=== PATIENT | female | born 1965 | race Caucasian/White ===

== ENCOUNTER 2019-07-15 07:40 | Day surgery (SDC) | payer OTHER, MEDICAID ==
[2019-07-15] MEDS: ACETAMINOPHEN 500 MG TAB PO (08:36)
[2019-07-15] MEDS: LIDOCAINE 3.5% GEL TUBE OPER (08:38)
[2019-07-15] MEDS: PHENYLephrine 10% 5 ML OPH OPER (08:38)
[2019-07-15] MEDS: BROMFENAC SODIUM 1.7 ML OPH DROP OPER (08:39)
[2019-07-15] MEDS: CYCLOPENTOLATE 2% 2 ML OPH OPER (08:41)
[2019-07-15] MEDS: TROPICAMIDE 1% 15 ML OPH OPER (08:42)
[2019-07-15] MEDS: TETRACAINE 0.5% 4 ML OPH OPER (08:43)
[2019-07-15] MEDS: MOXIFLOXACIN 0.5% 3 ML OPH OPER (08:43)
[2019-07-15] MEDS: LACTATED RINGER'S 1,000 ML IV (08:45)
[2019-07-15] MEDS ORDERED: EPINEPHrine 1 MG INJ (09:34)
[2019-07-15] MEDS: LIDOCAINE 2%/EPI (MDV) 20ML INJ INJ (10:00)
[2019-07-15] MEDS ORDERED: LIDOCAINE 2% (MDV) 20 ML INJ INJ (10:00)
[2019-07-15] MEDS ORDERED: LIDOCAINE 2% (SDV) 5 ML INJ INJ (10:00)
[2019-07-15] MEDS ORDERED: TOBRAMYCIN 0.3% 3.5 GM OPH OINT (10:01)
[2019-07-15] MEDS ORDERED: TOBRAMYCIN 0.3% 5 ML OPH (10:01)
[2019-07-15] MEDS ORDERED: NA HYALURONATE/CHONDROITIN 0.5 ML SYG (10:01)
[2019-07-15] MEDS: TRYPAN BLUE 0.5 ML SYG IO (10:01)
[2019-07-15] MEDS ORDERED: CARBACHOL 0.01% 1.5 ML OPH INJ (10:01)
[2019-07-15] MEDS ORDERED: MIDAZOLAM 1 MG/ML 2 ML INJ ×2 (10:06→10:42)
[2019-07-15] MEDS ORDERED: FENTAnyl 50 MCG/ML VIAL (10:07)
[2019-07-15] MEDS ORDERED: CEFAZOLIN 1 GM INJ ×2 (10:07→10:11)
[2019-07-15] MEDS ORDERED: ONDANSETRON 4 MG INJ (11:12)
[2019-07-15] MEDS ORDERED: HYDROmorphONE 1 MG/5 ML IV SYRINGE IV ×2 (11:12→11:30)
[2019-07-15] MEDS ORDERED: hydrALAzine 20 MG INJ IV (11:30)
[2019-07-15] MEDS ORDERED: LABETALOL HCL 20MG INJ IV (11:30)
[2019-07-15] MEDS ORDERED: DIPHENHYDRAMINE 50 MG INJ IV (11:30)
[2019-07-15] MEDS ORDERED: EPHEDrine 25 MG/5 ML SYG IV (11:30)
[2019-07-15] MEDS ORDERED: KETOROLAC 15 MG INJ IV (11:30)
[2019-07-15] MEDS ORDERED: ALBUTEROL 0.083% (NEB) 2.5 MG/3 ML AMP HHN (11:30)
[2019-07-15] MEDS ORDERED: ATROPINE 1 MG/10 ML SYRINGE IV (11:30)
[2019-07-15] MEDS ORDERED: FENTAnyl 50 MCG/ML VIAL IV ×2 (11:30)
[2019-07-15] MEDS ORDERED: morphine 2 MG INJ IV ×2 (11:30)
[2019-07-15] MEDS ORDERED: LEVALBUTEROL (NEB) 0.63 MG/3 ML AMP HHN (11:30)
[2019-07-15] MEDS ORDERED: OXYCODONE/ACETAMINOPHEN (5/325) TAB PO ×2 (11:30)
[2019-07-15] MEDS: HYDROmorphONE 1 MG/5 ML IV SYRINGE IV ×2 (11:34→11:51)
[2019-07-15] MEDS: ONDANSETRON 4 MG INJ IV (12:02)
== END 2019-07-15 12:45 | disposition home or self-care (01) ==
LOC: SDS 07:40
DX: H25.12 Age-related nuclear cataract, left eye (principal); E11.9 Type 2 diabetes mellitus without complications; E03.9 Hypothyroidism, unspecified
CPT/HCPCS: 66984; 82962; 84703